=== PATIENT | male | born 1995 | race Caucasian/White ===

== ENCOUNTER 2019-06-18 06:00 | Outpatient (RCR) | payer SELFPAY | END 2019-07-18 00:01 | LOC: APT 06:00 | PROVIDERS: Family Provider Nurse Practitioner; Visit Provider Orthopaedic Surgery | DX: Z47.89 Encounter for other orthopedic aftercare (principal) | CPT/HCPCS: 97110 ×5 ==

== ENCOUNTER 2019-07-18 | Outpatient (RCR) | payer SELFPAY | END 2019-08-02 | disposition home or self-care (01) | LOC: APT | PROVIDERS: PCP Nurse Practitioner; Visit Provider Orthopaedic Surgery | DX: Z47.89 Encounter for other orthopedic aftercare (principal) | CPT/HCPCS: 97110 ==

== ENCOUNTER → 2019-09-04 16:35 | Outpatient (BNVA) | payer MEDICAID, SELFPAY | PROVIDERS: Family Provider Nurse Practitioner; PCP Nurse Practitioner; Visit Provider Nurse Practitioner Family | DX: J06.9 Acute upper respiratory infection, unspecified (principal); R69 Illness, unspecified | CPT/HCPCS: 87804 ==

== ENCOUNTER 2019-10-24 23:08 | Emergency (ER) | payer OTHER, MEDICAID, SELFPAY ==
[2019-10-24 23:08] VITALS: BP 143/69; PULSE 80; RESP 16; TEMP 36.7; O2SAT 98; BMI 27.6
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
--- NOTE | 2019-10-24 23:14 | XR_ITS ---
WS: [id number] SHOULDER RIGHT TECHNIQUE: 3 views of the right shoulder CLINICAL INFORMATION: injury COMPARISON: None. FINDINGS: Normal acromioclavicular joint. Normal glenohumeral joint. Acromion is normal in appearance. Normal g lenoid. No evidence of acute fracture dislocation. XR/XR shoulder RT min 2V* [id number] IMPRESSION: Normal right shoulder.
[2019-10-24] MEDS: HYDROmorphone 1 mg/mL INJ 1 mL IVP (23:24)
[2019-10-25 00:49] VITALS: BP 143/36; PULSE 76; RESP 16; O2SAT 95
--- NOTE | 2019-10-25 09:28 | DCPLANNER ---
manager of enterprise had message to schedule a follow up appointment for patient with ortho. manager of enterprise called the ortho clinic, spoke with Alicia, gave clinic patients information. manager of enterprise was told that patients information would be printed and reviewed. Clinic will call case investigator and patient with appointment information.
--- NOTE | 2019-10-27 09:29 | DCPLANNER ---
Patient has an appointment scheduled for Wednesday, November 13, [address] at 11:[address] Bradley. Clinic will call patient with appointment information.
--- NOTE | 2019-11-30 15:53 | DCPLANNER ---
Patient attended appointment scheduled for 11.13.19 with ortho
== END 2019-10-25 01:10 | disposition home or self-care (01) ==
PROVIDERS: Emergency Provider Emergency Medicine; Family Provider Nurse Practitioner; PCP Nurse Practitioner
DX: S46.911A Strain of unspecified muscle, fascia and tendon at shoulder and upper arm level, right arm, initial encounter (principal); V89.2XXA Person injured in unspecified motor-vehicle accident, traffic, initial encounter; S27.321A Contusion of lung, unilateral, initial encounter; F17.200 Nicotine dependence, unspecified, uncomplicated
CPT/HCPCS: 12345; 71260; 73030; 74177; 96374; 99282; 99283; J1170

== ENCOUNTER 2019-10-26 12:55 | Emergency (ER) | payer MEDICAID, SELFPAY ==
[2019-10-26 12:57] VITALS: BP 151/72; PULSE 72; RESP 16; TEMP 36.7; O2SAT 98; BMI 28.1
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
--- NOTE | 2019-10-26 13:30 | PC.NURSE ---
Pt to CT
[2019-10-26] MEDS: iohexol 300 mg/mL 100 mL Btl IV ×2 (13:50→13:51)
[2019-10-26 13:53] VITALS: BP 127/63; PULSE 68; RESP 12; O2SAT 96
[2019-10-26] MEDS: cefTRIAXone 2,000 MG in sodium chloride 0.9% (plus) 50 ML 100 MG IV (14:54)
[2019-10-26 16:07] VITALS: BP 133/69; PULSE 96; RESP 18; O2SAT 99
== END 2019-10-26 16:08 | disposition home or self-care (01) ==
PROVIDERS: Emergency Provider Family Medicine; Family Provider Nurse Practitioner; PCP Nurse Practitioner
DX: J18.9 Pneumonia, unspecified organism (principal); F17.200 Nicotine dependence, unspecified, uncomplicated
CPT/HCPCS: 12345; 70491; 71260; 96365; 99282; 99283; J0696; Q9967

== ENCOUNTER → 2019-11-13 11:53 | Outpatient (BNVA) | payer OTHER, MEDICAID, SELFPAY | PROVIDERS: Family Provider Nurse Practitioner; PCP Nurse Practitioner; Visit Provider Specialist | DX: M25.511 Pain in right shoulder (principal) | CPT/HCPCS: 73030 ==

== ENCOUNTER 2019-11-20 11:40 | Outpatient (CLI) | payer MEDICAID, SELFPAY ==
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
== END 2019-11-20 11:41 | disposition home or self-care (01) ==
LOC: RADSHAW 11:44
PROVIDERS: Family Provider Nurse Practitioner; PCP Nurse Practitioner; Visit Provider Specialist
DX: S42.301A Unspecified fracture of shaft of humerus, right arm, initial encounter for closed fracture (principal); M25.511 Pain in right shoulder; V49.50XA Passenger injured in collision with unspecified motor vehicles in traffic accident, initial encounter
CPT/HCPCS: 73221

== ENCOUNTER → 2020-02-05 15:35 | Outpatient (BNVA) | payer MEDICAID, SELFPAY | PROVIDERS: PCP Nurse Practitioner; Visit Provider Nurse Practitioner | DX: L03.90 Cellulitis, unspecified (principal); W34.00XA Accidental discharge from unspecified firearms or gun, initial encounter; S70.352A Superficial foreign body, left thigh, initial encounter | CPT/HCPCS: 73502; 85025 ==